=== PATIENT | male | born 1995 | race African-American/Black ===

== ENCOUNTER → 2022-05-08 13:05 | Outpatient (CLI) | payer OTHER, SELFPAY ==
[2022-05-08 14:37] LABS: COVID19 -Nasal RAPID Negative (Negative)
--- NOTE | 2022-05-15 07:34 | PM.PFT.1 ---
Pulmonary Function Test Referral & Results Date Patient Seen: 05/08/22 Requesting provider: Jovany Mcallister Results: The spirometry demonstrates an FVC of 5.69 L which is 123% of predicted. The FEV1 was measured at 4.48 L which is 115% of predicted. The FEV1/FVC ratio was 79 which is 93% of predicted. Interpretation: This study demonstrates normal forced spirometry
== END ==
PROVIDERS: Referring Provider Chiropractor; Visit Provider Chiropractor
DX: J30.9 Allergic rhinitis, unspecified (principal); J45.998 Other asthma; Z20.822 Contact with and (suspected) exposure to COVID-19
CPT/HCPCS: 87635; 94010; C9803